=== PATIENT | female | born 2000 | race Caucasian/White ===

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

== ENCOUNTER 2022-05-15 13:55 | Outpatient (CLI) | payer MEDICAID, SELFPAY ==
[2022-05-15 17:23] LABS: Chloride* 109 mmol/L (96-114); Potassium* 3.9 mmol/L (3.6-5.1); Sodium* 141 mmol/L (135-149)
[2022-05-15 17:26] LABS: Blood Urea Nitrogen* 8 mg/dL (5-24); Carbon Dioxide* 25 mmol/L (20-32); Creatinine* 0.6 mg/dL (0.6-1.2); Estimated Glomerular Filt Rate 133 ml/min; Glucose* 88 mg/dL (60-115)
[2022-05-15 17:27] LABS: Calcium* 9.3 mg/dL (8.7-10.8)
== END 2022-05-15 13:56 | disposition home or self-care (01) ==
LOC: LONREF 13:57
PROVIDERS: PCP Family Medicine; Visit Provider Family Medicine
DX: Z01.818 Encounter for other preprocedural examination (principal)
CPT/HCPCS: 80048; 87086

== ENCOUNTER 2022-05-28 08:56 | Outpatient (CLI) | payer MEDICAID, SELFPAY ==
[2022-05-28 14:39] LABS: SARS PCR* Negative SARS-CoV-2 (Negative)
== END 2022-05-28 08:57 | disposition home or self-care (01) ==
LOC: LONREF 08:56
PROVIDERS: PCP Family Medicine; Visit Provider Family Medicine
DX: Z20.822 Contact with and (suspected) exposure to COVID-19 (principal); Z01.818 Encounter for other preprocedural examination
CPT/HCPCS: 87635

== ENCOUNTER 2023-04-30 12:16 | Emergency (ER) | payer MEDICAID, SELFPAY ==
[2023-04-30 13:07] VITALS: BP 143/86; PULSE 92; RESP 16; TEMP 36.8; O2SAT 99; BMI 19.8
--- NOTE | 2023-04-30 13:48 | ED_ITS ---
HPI - Wound/Laceration General Date Seen: 04/30/23 Chief Complaint: Laceration/Wound Stated Complaint: Dog bite L leg two weeks ago, potentially infected Time Seen by Provider: 04/30/23 13:19 Source: patient Mode of arrival: ambulatory Limitations: no limitations History of Present Illness HPI narrative: Patient is a 22-year-old female presenting to the emergency department for dog bite to her left lower leg. This happened 2 weeks ago. She was evaluated at that time was placed on amoxicillin. She specifically states that was amoxicillin she was on not Augmentin. Since then she has also swelling is going down in her leg but there is still erythema seen around the bites and they are tender to palpation. She states that was initially bloody drainage followed by a yellow drainage and now it is mostly bloody drainage again. Denies fevers or chills. No pain noted anywhere else. Related Data Previous Rx's Medication Instructions Recorded trazodone 50 mg tablet 50 mg PO QHS PRN insomnia #30 tabs 03/30/22 norgestimate-ethinyl estradiol 1 tab PO QDAY #84 tabs 12/21/22 0.18 mg/0.215mg/0.25mg-35 mcg(21)tablet methylphenidate HCl 27 mg 27 mg PO QAM #30 tabs 04/02/23 tablet,extended release 24 hr amoxicillin 875 mg-potassium 1 tab PO Q12H #10 tabs 04/30/23 clavulanate 125 mg tablet Allergies Allergy/AdvReac Type Severity Reaction Status Date / Time No Known Drug Allergies Allergy Verified 05/15/22 13:21 Review of Systems Narrative: Pertinent systems reviewed and are negative unless stated in HPI PFSH PFSH Medical History Self-inflicted injury Surgical History Status post thoracic spinal fusion ?Z98.1 - Arthrodesis status (ICD-10) Social History What is your current living situation?: I presently have a place to live In the past 12 months, utilities in danger of being shut off: no In past 12 months, lack of transportation kept you from medical appts, meetings, work, or getting things needed for daily living: no In the past 12 mos, have been you worried that your food would run out before you had money to buy more?: never true In the past 12 mos, the food you bought just didn't last and you didn't have money to buy more?: never true Smoking Status: Never smoker How often does anyone, including family, friends and others, physically hurt you : never How often does anyone, including family, friends and others, insult or talk down to you: rarely How often does anyone, including family, friends and others, threaten you with harm: never How often does anyone, including family, friends and others, scream or curse at you: never Little interest or pleasure in doing things: not at all Feeling down, depressed, or hopeless: several days Exam Narrative: Exam Narrative: Const: Well-nourished, Well-developed, in no distress Eyes: PERRL, no conjunctival injection, and symmetrical lids HENT: Atraumatic external nose and ears. Moist mucous membranes. MSK:Extremities w/o deformity, Normal Active ROM Skin: Warm, Dry. Multiple healing lacerations to left lower extremity consistent was dog attack Neuro: Normal Muscle tone, No focal neurological deficits. Psych: Awake, Alert, & Oriented x3. Appropriate mood and affect. Const: Vital Signs, click to edit/add: Vital Signs - 24 hr 04/30/23 13:07 Temperature 98.3 F Pulse Rate [Pulse Oximeter] 92 Respiratory Rate 16 Blood Pressure [Ri ght Upper Arm] 143/86 H Pulse Oximetry 99 Oxygen Delivery Me thod Room Air Course Vital Signs Vital signs: Initial Vital Signs Temperature 98.3 F 04/30/23 13:07 Temperature Source Temporal Artery Scan 04/30/23 13:07 Pulse Rate 92 04/30/23 13:07 Respiratory Rate 16 04/30/23 13:07 Blood Pressure 143/86 H 04/30/23 13:07 Blood Pressure Mean 105 04/30/23 13:07 Blood Pressure Position Sitting 04/30/23 13:07 Pulse Oximetry 99 04/30/23 13:07 Oxygen Delivery Method Room Air 04/30/23 13:07 Vital Signs Temperature 98.3 F 04/30/23 13:07 Pulse Rate 92 04/30/23 13:07 Respiratory Rate 16 04/30/23 13:07 Blood Pressure 143/86 H 04/30/23 13:07 Pulse Oximetry 99 04/30/23 13:07 Oxygen Delivery Method Room Air 04/30/23 13:07 Temperature 98.3 F 04/30/23 13:07 Pulse Rate 92 04/30/23 13:07 Respiratory Rate 16 04/30/23 13:07 Blood Pressure 143/86 H 04/30/23 13:07 Pulse Oximetry 99 04/30/23 13:07 Oxygen Delivery Method Room Air 04/30/23 13:07 MDM - Wound/Laceration MDM Narrative Medical decision making narrative: Patient is a 22-year-old female presenting for concern for infection of the dog bite. She was on amoxicillin but not Augmentin. She was having some bloody drainage in blending tank tender helper around the areas were the bite occurred. There is no signs of systemic infection. Since she was incorrectly covered initially a will place on Augmentin now. She is agreeable to this plan. Discharge Plan Discharge Clinical Impression: Dog bite Qualifiers: Encounter type: subsequent encounter Qualified Code(s): W54.0XXD - Bitten by dog, subsequent encounter Patient Disposition: Home, Self-Care Condition: Stable Instructions: Animal Bite (ED) Additional Instructions: Take the antibiotics as prescribed. Return to emergency department for new or worsening symptoms Prescriptions: New amoxicillin-pot clavulanate 875-125 mg tablet 1 tab PO Q12H Qty: 10 0RF No Action trazodone 50 mg tablet 50 mg PO QHS PRN (Reason: insomnia) Qty: 30 5RF norgestimate-ethinyl estradiol 0.18/0.215/0.25 mg-35 mcg (21) tablet 1 tab PO QDAY Qty: 84 3RF methylphenidate HCl 27 mg tablet extended release 24hr 27 mg PO QAM Qty: 30 0RF Follow Up/Referrals: Oscar Sánchez MD [Primary Care Provider] - Stand Alone Forms: [employer] Info Instructions
--- OUTSIDE RECORDS SUMMARY | 2023-04-30 13:53 | XMS_ITS | Encounter Summary ---
Author Name Unknown Organization [facility] Address [address] [place] [id number] Care Team Providers Care Serials Librarian Name Role Phone No Primary/Referring, Phy Primary Care Provider Unavailable Reason for Visit * Procedure/Equipment (Routine) - Incomplete Specialty Diagnoses / Procedures Referred By Contac t Referred To Contact Procedures XR Hand Lt 3+ Views Janes Arthur PA-C [address] [place] [address] Referral ID Status Reason Start Date Expiration Date V isits Requested Visits Authorized [id number] Incomplete 04/20/2023 07/19/2024 1 1 Encounter Details Date Type Department Care Team Description 04/20/2023 9:45 PM [facility] Ancillary Procedure [facility] [address] [place] [address] Social History Tobacco Use Types Packs/Day Years Used Date Smoking Tobacco: Never Assessed Humiliation, Afraid, Rape, and Kick questionnair e Answer Date Recorded Fear of Current or Ex-Partner Not on file Emotionally Abused Not on file 04/20/2023 Within the last year, have y ou been kicked, hit, slapped, or otherwise physically hurt by your partner or ex-partner? No 04/20/2023 Within the last year, have y ou been raped or forced to have any kind of sexual activity by your partner or ex-partner? No 04/20/2023 Sex and Gender Information Value Date Recorded Sex Assigned at Not on file Gender Identity Not on file Sexual Orientation Not on file documented as of this encounter Plan of Treatment Not on file documented as of this encounter Procedures Procedure Name Priority Date/Time Associated Diagnosis Comments XR HAND LT 3+ VIEWS STAT 04/20/2023 9 :50 PM [facility] XR TIBIA FIBULA LT 2 VIEWS STAT 04/20/2023 9:50 PM [facility] documented in this encounter Results * XR Hand Lt 3+ Views (04/20/2023 9:50 PM [facility]) Anatomical Region Laterality Modality Upper Extremity, Hand Computed R adiography 04/20/2023 9:50 PM [facility] Narrative 04/20/2023 9:54 PM [facility] EXAM: XR HAND LT 3+ VIEWS LOCATION: [facility] DATE: 04/20/2023 INDICATION: Dog bite, PAIN COMPARISON: None. IMPRESSION: No acute bony finding such as fracture dislocation. There is some faint low density changes seen in the soft tissues of the hand which may represent gas given patient's history of recent dogbite. No unexpected radiopaque foreign body seen. Procedure Note Jeferson Gonzales MD - 04/20/2023 EXAM: XR HAND LT 3+ VIEWS LOCATION: [facility] DATE: 04/20/2023 INDICATION: Dog bite, PAIN COMPARISON: None. IMPRESSION: No acute bony finding such as fracture dislocation. There issome faint low density changes seen in the soft tissues of the hand whichmay represent gas given patient's history of recent dogbite. No unexpectedradiopaque foreign body seen. Janes Arthur PA-C RAD GD * XR Tibia Fibula Lt 2 Views (04/20/2023 9:50 PM [facility]) Anatomical Region Laterality Modality Lower Extremity, Knee, Leg, Foot & Ankle Computed Radiography 04/20/2023 9:50 PM [facility] Narrative 04/20/2023 9:54 PM [facility] EXAM: XR TIBIA FIBULA LT 2 VIEWS LOCATION: [facility] DATE: 04/20/2023 INDICATION: Not by with left lower leg pain. COMPARISON: None. IMPRESSION: Soft tissue gas lateral aspect of mid fibular diaphysis. No radiopaque soft tissue foreign body nor osseous injury. Procedure Note Gil Campuzano MD - 04/20/2023 EXAM: XR TIBIA FIBULA LT 2 VIEWS LOCATION: [facility] DATE: 04/20/2023 INDICATION: Not by with left lower leg pain. COMPARISON: None. IMPRESSION: Soft tissue gas lateral aspect of mid fibular diaphysis. Noradiopaque soft tissue foreign body nor osseous injury. Janes HURTADO documented in this encounter Visit Diagnoses Not on filedocumented in this encounter Care Teams Serials Librarian Relationship Specialty Start Date End Date No Primary/Referring, Phy PCP - General 04/20/23 documented as of this encounter
--- OUTSIDE RECORDS SUMMARY | 2023-04-30 13:53 | XMS_ITS | Clinical Summary ---
Author Name Unknown Organization [facility] Address [place], [place] [address] Care Team Providers Care House Calls Nurse Name Role Phone Oscar Sánchez MD Primary Care Provider [phone] [facility] [place] Unavailable [phone] Allergies No known active allergies Medications Medication Sig Dispensed Refills Start Date End Date Status methylphenidate 18 mg ER tablet ([employer] BR[employer] ONLY) Take 18 mg by mouth once daily. 0 Active norgestimate-ethiny l estradioL (ORTHO TRI-CYCLEN) 0.18/0.215/0.25 mg-35 mcg (28) tablet Take 1 Tablet by mouth once daily. 0 Active HYDROmorphone (DILAUDID) 2 mg tabletIndications:A cute post-operative pain [The details of the medication are not available because there are pending changes by a home health clinician.] 20 Tablet 0 05/31/2022 Active Additional Information Patient not taking.Reason: See Comment (is only taking the oxycodone now), Informant: Patient's Recall, Reported on 06/08/2022 methocarbamoL (ROBAXIN) 750 mg tabletIndications:A cute post-operative pain [The details of the medication are not available because there are pending changes by a home health clinician.] 12 Tablet 0 05/31/2022 Active Additional Information Patient not taking.Informant: Patient's Recall, Reported on 07/06/2022 sennosides-docusate (SENOKOT S) (8.6-50 mg) tabletIndications:A cute post-operative pain [The details of the medication are not available because there are pending changes by a home health clinician.] 8 Tablet 0 05/31/2022 Active Additional Information Patient not taking.Informant: Patient's Recall, Reported on 07/06/2022 Active Problems Problem Noted Date Diagnosed Date Mixed anxiety depressive disorder 05/30/2022 Insomnia 05/30/2022 Attention deficit disorder (ADD) 05/30/2022 Scoliosis 05/30/2022 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 Immunizations Name Administration Dates Next Due DTP 04/19/2004, 4,04/20/2003,01/12 [id number] (Pediarix) 07/07/2003,04/20/2003,1 DTaP-IPV (Kinrix) 11/18/2007 Dtap-5 Pertussis Antigens 04/19/2004 HIB HbOC (HibTITER) 04/19/2004,04/20/2003,2002 HIB PRP-OMP (PedvaxHIB) 04/19/2004,04/20/2003 HIB PRP-T (ActHIB,Hiberix) 01/12/2003 HPV 9 (Gardasil 9) 07/14/2019,04/13/2019, 018 Hep A, Ped/adol, 3 Dose 03/20/2013 Hepatitis A (Peds) 11/18/2007 Hepatitis B (Peds) 07/07/2003,04/20/2003, 003 Inactivated Polio Vaccine 07/07/2003,04/20/2003, 01/12/2003 Influenza, IIV3 (Age 6-35 mos) 4,12/11/2010,03/20/2010,05/02 Influenza, IIV3 (Age >=3 years) 04/20/2008 Influenza,LAIV4 Live Intrana reina (Flumist) 12/31/2014 MMR 03/20/2013,11/17/2003 Meningococcal Vaccine (Menveo) 05/08/2017 Pneumococcal conj 7-Valent (Prevnar 7) 0 04/19/2004,07/07/2003,04/20/2003,01/12 Tdap 05/08/2017 Varicella Vaccine 11/18/2007,11/17/2003 Social History Tobacco Use Types Packs/Day Years Used Date Smoking Tobacco: Never Smokeless Tobacco: Never Tobacco Cessation:Counseling Given: Not Answered Alcohol Use Standard Drinks/Week Comments Yes 0 (1 standard drink = 0.6 oz pur e alcohol) very rare Social Connections Answer Date Recorded Frequency of Communication with Friends and Fami ly Not on file 06/25/2022 Sex and Gender Information Value Date Recorded Sex Assigned at Not on file Gender Identity Not on file Sexual Orientation Not on file Obstetrics History Last Filed Vital Signs Vital Sign Reading Time Taken Comments Blood Pressure 120/70 07/06/2022 3:43 PM CDT Pulse 96 07/06/2022 3:43 PM CDT Temperature 36.3 ??C (97.3 ??F) 07/06/2022 3:43 PM CD T Respiratory Rate 14 07/06/2022 3:43 PM CDT Oxygen Saturation 97% 07/06/2022 3:43 PM CDT Inhaled Oxygen Concentration - - Weight 63.5 kg (140 lb) 05/31/2022 6:00 AM CDT Height 165.1 cm (5' 5) 05/31/2022 6:00 AM CDT Body Mass Index 23.3 05/31/2022 6:00 AM CDT Plan of Treatment Health Maintenance Due Date Last Done Comments COVID-19 vaccine series (#1) 05/05/2003 Well Child Check for age 3-20 10/02/2005 Depression screening for age 12+ 2014 HIV for age 15-65 2017 BMI (ht and wt on same day) for age 18+ 2020 Hepatitis C screening for age 18-79 2020 Influenza for age 9-49 11/16/2022 12/31/2014, 2008 Tetanus booster 05/08/2027 05/08/2017 Pneumococcal series for age 6-64 Aged Out 04/19/2004, 07/07/2003, 04/20/2003, Additional history exists No longer eligible based on patient's age to complete this topic Meningococcal series for age 11-21 Aged Out 05/08/2017 No longer eligible based on patient's age to complete this topic Tdap Completed 05/08/2017 HPV series for age 9-26 Completed 07/14/19, 04/13/2019, 05/08/2017 Medical Devices Implanted Type Area Nc Machinist Device Identifier Shelf Expiration Date Model / Serial / Lot [id number] one 1-4mm 90cc Medtronic Chips Canclls Freeze Dried Implanted:Qty: 1 on 05/29/2022 by Alejandro Echevarria MD at [facility] N/A: Spine Medtronic Spine/Ortho 03/31/2026 [id number] / [id number] / Kena 5.5 [place] Chrome Lined 520mm Implanted:Qty: 2 on 05/29/2022 by Alejandro Echevarria MD at [facility] N/A: Spine [id number] / / Description:KENA 5.5 [place] C HROME LINED 520MM Screw Set 5.5/6.0 Implanted:Qty: 17 on 05/29/2022 by Alejandro Echevarria MD at [facility] N/A: Spine [id number] / / Description:SCREW SET 5.5/6. 0 Screw Voyager 5.5 X 30 Implanted:Qty: 2 on 05/29/2022 by Alejandro Echevarria MD at [facility] N/A: Spine [id number] / / Description:SCREW VOYAGER 5. 5 X 30 Screw Voyager 5.5 X 35 Implanted:Qty: 3 on 05/29/2022 by Alejandro Echevarria MD at [facility] N/A: Spine [id number] / / Description:SCREW VOYAGER 5. 5 X 35 Screw Voyager 5.5 X 40 Implanted:Qty: 8 on 05/29/2022 by Alejandro Echevarria MD at [facility] N/A: Spine [id number] / / Description:SCREW VOYAGER 5. 5 X 40 Screw Voyager 6.5 X 40 Implanted:Qty: 2 on 05/29/2022 by Alejandro Echevarria MD at [facility] N/A: Spine [id number] / / Description:SCREW VOYAGER 6. 5 X 40 Screw Voyager 6.5 X 45 Implanted:Qty: 2 on 05/29/2022 by Alejandro Echevarria MD at [facility] N/A: Spine [id number] / / Description:SCREW VOYAGER 6. 5 X 45 Advance Directives Latest Code Status on File Code Status Date Activated Date Inactivated Comments Full Code 05/29/2022 4:51 PM 06/01/2022 3:51 PM Question Answer Comments Code Status Discussion: Reviewed Preferences Care Teams House Calls Nurse Relationship Specialty Start Date End Date Oscar Sánchez MD PCP - General Family Practice 05/09/[address] [address] 06/01/22
--- OUTSIDE RECORDS SUMMARY | 2023-04-30 13:53 | XMS_ITS | Encounter Summary ---
Author Name Unknown Organization [facility] Address [address] [place] [address] Care Team Providers Care Lead Systems Analyst Name Role Phone No Primary/Referring, Phy Primary Care Provider Unavailable Reason for Referral * Procedure/Equipment (Routine) - Incomplete Specialty Diagnoses / Procedures Referred By Contac t Referred To Contact Procedures XR Hand Lt 3+ Views Janes Arthur PA-C [address] [place] [phone] Referral ID Status Reason Start Date Expiration Date V isits Requested Visits Authorized [id number] Incomplete 04/20/2023 07/19/2024 1 1 E CONSERVATIONIST * Procedure/Equipment (Routine) - Incomplete Specialty Diagnoses / Procedures Referred By Contac t Referred To Contact Procedures XR Tibia Fibula Lt 2 Views Janes Arthur PA-C [address] [place] [id number] Referral ID Status Reason Start Date Expiration Date V isits Requested Visits Authorized [id number] Incomplete 04/20/2023 07/19/2024 1 1 E CONSERVATIONIST Reason for Visit * Reason Comments Animal Bite Dog bite to left hatch d and lower left leg above the ankle. Bleeding controlled and wounds dressed with 4x4's and secured with Kurlex. Dog is vaccinated and they know the dog. Encounter Details Date Type Department Care Team Description 04/20/2023 8:38 PM RANGE CONSERVATIONIST - 04/20/2023 11:40 PM RANGE CONSERVATIONIST [facility] [address] [place] [address] [phone] Janes Arthur PA-C [address] [place] [address] [phone] Dog bite, initial encounter (Primary Dx); Open wound of left hand due to animal bite; Open wound of left lower leg due to bite; Encounter for administration of vaccine Discharge Disposition: Home Social History Tobacco Use Types Packs/Day Years [...] on file documented as of this encounter Last Filed Vital Signs Vital Sign Reading Time Taken Comments Blood Pressure 128/95 04/20/2023 7:43 PM RANGE CONSERVATIONIST Pulse 66 04/20/2023 7:43 PM RANGE CONSERVATIONIST Temperature 36.9 ??C (98.4 ??F) 04/20/2023 7:43 PM CS T Respiratory Rate 20 04/20/2023 7:43 PM RANGE CONSERVATIONIST Oxygen Saturation 97% 04/20/2023 7:43 PM RANGE CONSERVATIONIST Inhaled Oxygen Concentration - - Weight - - Height - - Body Mass Index - - documented in this encounter Discharge Instructions * Discharge Instructions* Janes Arthur PA-C - 04/20/2023 10:19 PM RANGE CONSERVATIONIST Follow-up with primary care provider on Saturday or for recheck. Tylenol or ibuprofen for pain per bottle labeled direction. Take antibiotic until gone. E CONSERVATIONIST * Attachments The following attachments cannot be sent through Care Everywhere. * Bites: Animal (Palauan) documented in this encounter Medications at Time of Discharge Medication Sig Dispensed Refills Start Date End Date ibuprofen (MOTRIN) 600 MG tablet Take 1 Tablet (600 mg) by mouth every 6 hours as needed for Pain. 30 Tablet 0 04/20/2023 amoxicillin-clavulanate (AUGMENTIN) 875-125 mg per tablet Take 1 Tablet (875 mg of amoxicillin) by mouth two times a day for 7 days. 14 Tablet 0 04/20/2023 04/27/2023 documented as of this encounter ED Notes * Mo García - 04/20/2023 11:39 PM CST [facility] ED Nursing Discharge Note Arrival Information: Patient arrived: Car Patient escorted by: Friend Discharge Information: Patient discharged: Home Patient accompanied by: Accompanied By: Friend Transport mode: Mode: Car Discharge instructions given and explained to patient: Follow up appointment review with patient: Yes New discharge prescriptions explained to patient: Yes: Medications Prescribed this Visit Disp Refills Start End amoxicillin-clavulanate (AUGMENTIN) 875-125 mg per tablet 14 Tablet 0 04/20/2023 04/27/2023 Take 1 Tablet (875 mg of amoxicillin) by mouth two times a day for 7 days. Oral ibuprofen (MOTRIN) 600 MG tablet 30 Tablet 0 04/20/2023 Take 1 Tablet (600 mg) by mouth every 6 hours as needed for Pain. Oral Patient appropriately dressed for weather: Yes LDA in place: Patient verbalized understanding of discharge plan and capable of completing discharge plan: Yes Does patient require hand-off or assistance with discharge plan: No Belongings and medication returned to patient and prompted to retrieve weapons: Yes Patient level of pain on discharge: (0-10) Pain Rating: Rest: 3 Holds documented by nursing during this visit - reviewed chart for most current hold status: Yes Legal Status Orders (From admission, onward) None E CONSERVATIONIST * Shu Gamez - 04/20/2023 10:39 PM CST Patient complained of numbness on inner left thumb. PA notified. E CONSERVATIONIST * Janes Arthur PA-C - 04/20/2023 10:12 PM CST Images from the original note were not included. [facility] Emergency Medicine Visit Note Chief Complaint: Animal Bite (Dog bite to left hand and lower left leg above the ankle. Bleeding controlled and wounds dressed with 4x4's and secured with Kurlex. Dog is vaccinated and they know the dog. ) HPI 22 y.o. who has no significant past medical history here with puncture bo to the left hand and left lower leg. Patient was bitten by her friend's dog. Patient can not recall her last tetanus and agrees to updating. Patient's friend is at bedside and stated that her dog is up to date on vaccination.. No other complaints at this time. Triage Vitals [04/20/23 194] Temp 98.4 ??F (36.9 ??C) Temp src Oral Pulse 66 Resp 20 BP (!) 128/95 SpO2 97 % Physical Exam General: alert, oriented to person, place, time and normal hydration Head: atraumatic Eyes: conjunctivae clear Nose: no rhinorrhea/nasal discharge Mouth/Throat: moist mucous membrane Neck: supple Chest/Pulmonary: Nonlabored respiration. Musculoskel/Extremities: Radial pulse +2 on the left hand, pedal pulse +2 on the left foot. Hand: full range of motion Skin: no rashes, no diaphoresis, and skin color normal Neuro: speech clear and gait stable Psychiatric: affect/mood normal, cooperative, normal judgement/insight, and memory intact MDM: Patient is a 22-year-old female who presented to the ER with dog bites to the left hand and left lower leg. Patient is right-handed dominant. Vitals reviewed, blood pressure 128/95. With historyand exam as above. Imaging ordered, Tetanus is updated. Patient declined Tylenol or ibuprofen for pain. Janes Arthur PA-C ED Course as of 04/20/232305 Sat Apr 20, [id number] X-ray negative and results reviewed with patient and her friend [MT] 2216 Wound care with irrigation and dressing by nursing staff. [MT] 2235 Patient complained of numbness to the left thumb and index finger, patient able to perform finger opposition. Capillary refills brisk. [MT] ED Course User Index [MT] Janes Arthur PA-C Clinical Impressions as of 04/20/232305 Dog bite, initial encounter - left hand and left lower leg E CONSERVATIONIST documented in this encounter Plan of Treatment Not on file documented as of this encounter Procedures Procedure Name Priority Date/Time Associated Diagnosis Comments XR TIBIA FIBULA LT 2 VIEWS STAT 04/20/2023 9:50 PM RANGE CONSERVATIONIST XR HAND LT 3+ VIEWS STAT 04/20/2023 9 :50 PM RANGE CONSERVATIONIST documented in this encounter Results * XR Hand Lt 3+ Views (04/20/2023 9:50 PM RANGE CONSERVATIONIST) Anatomical Region Laterality Modality Upper Extremity, Hand Computed R adiography 04/20/2023 9:50 PM RANGE CONSERVATIONIST Narrative 04/20/2023 9:54 PM RANGE CONSERVATIONIST EXAM: XR HAND LT 3+ VIEWS LOCATION: [...] EXAM: XR HAND LT 3+ VIEWS LOCATION: [facility] DATE: 04/20/2023 INDICATION: Dog bite, PAIN COMPARISON: None. IMPRESSION: No acute bony finding such as fracture dislocation. There issome faint low density changes seen in the soft tissues of the hand whichmay represent gas given patient's history of recent dogbite. No unexpectedradiopaque foreign body seen. Janes Arthur PA-C RAD GD * XR Tibia Fibula Lt 2 Views (04/20/2023 9:50 PM RANGE CONSERVATIONIST) Anatomical Region Laterality Modality Lower Extremity, Knee, Leg, Foot & Ankle Computed Radiography 04/20/2023 9:50 PM RANGE CONSERVATIONIST Narrative 04/20/2023 9:54 PM RANGE CONSERVATIONIST EXAM: XR TIBIA FIBULA LT 2 VIEWS LOCATION: [facility] DATE: 04/20/2023 INDICATION: Not by with left lower leg pain. COMPARISON: None. IMPRESSION: Soft tissue gas lateral aspect of mid fibular diaphysis. No radiopaque soft tissue foreign body nor osseous injury. Procedure Note Gil Campuzano MD - 04/20/2023 EXAM: XR TIBIA FIBULA LT 2 VIEWS LOCATION: [facility] DATE: 04/20/2023 INDICATION: Not by with left lower leg pain. COMPARISON: None. IMPRESSION: Soft tissue gas lateral aspect of mid fibular diaphysis. Noradiopaque soft tissue foreign body nor osseous injury. Janes Arthur STEPHANIE RAD GD documented in this encounter Visit Diagnoses Diagnosis Dog bite, initial encounter- Primary Open wound of left hand due to animal bite Open wound of left lower leg due to bite Encounter for administration of vaccine * Triage Assessment Note - Kalie Talavera RN - 04/20/2023 7:36 PM RANGE CONSERVATIONIST Chief complaint: Dog bite Symptoms/background/relevant history (narrative): Pt presents after being bit multiple times by dogtonight, multiple <1cm punctures noted to L hand and L muse, one approx 3cm lac noted to medial L muse. Bleeding controlled, bandage applied in triage. Pt states dog is vaccinated. What is most important to you about your ER visit today? Get checked out Initial falls risk factors: Not applicable E CONSERVATIONIST documented in this encounter Administered Medications Inactive Administered Medications - up to 3 most recent administrations Medication Order MAR Action Action Date Dose Rate Site ibuprofen (MOTRIN) tablet 400 mg 400 mg, Oral, NOW, On 04/20/23 at 2014, For 1 dose, Give with food or milk. Given 04/20/2023 7:59 PM RANGE CONSERVATIONIST 400 mg documented in this encounter Active and Recently Administered Medications Times are shown in RANGE CONSERVATIONIST. Scheduled Medication Order 04/18/2023 04/19/2023 04/20/2023 ibuprofen (MOTRIN) tablet 400 mg (COMPLETED) 400 mg, Oral, NOW, On 04/20/23 at 2014, For 1 dose, Give with food or milk. 1956 (Given - Provid er: Kalie Talavera RN) documented in this encounter Care Teams Lead Systems Analyst Relationship Specialty Start Date End Date No Primary/Referring, Phy PCP - General 04/20/23 documented as of this encounter
--- OUTSIDE RECORDS SUMMARY | 2023-04-30 13:53 | XMS_ITS | Continuity of Care Document ---
Author Name Unknown Organization [facility] Address [address] [place] [address] Phone Care Team Providers Care Dermatology Teacher Name Role Phone Alejandro Echevarria MD Unavailable Unavailable Allergies, Adverse Reactions, Alerts Substance Reaction Status Criticality No Known Allergies Active No Inform ation Medications Medication Instructions Dosage Effective Dates (start - stop) Status Comments oxycodone 5 mg tablet take 1 - 2 tablet by ORAL route every 4 - 6 hours as needed for pain 5 MG - Active COTEMPLA XR-ODT (unknown strength) Not Available - Active Procedures Procedure Date Postop Followup Visit X Ray Exam Entire Spine 2/3 23 PSF for Spinal Deformity, 7-12 Segments - PA Latoya / Campo-Palacios Osteotomy, Thorac ic - PA Latoya / Campo-Palacios Osteotomy - Addit ional Level(s) - PA Posterior Instrumentation, 7-12 Segments - PA PSF for Spinal Deformity, 7-12 Segments Latoya / Campo-Palacios Osteotomy, Thorac ic Latoya / Capmo-Palacios Osteotomy - Addit ional Level(s) Posterior Instrumentation, 7-12 Segments Office/Outpatient Visit,[facility], Mod 2021 X Ray Exam Entire Spine 2/3 Office/Outpatient Visit,[facility] 2021 Advance Directives Directive Yes / No Effective Date File Name No Information Encounters Encounter Description Practice Location Reason(s) For Visit Diagnoses Date Provider Providers Copied on Encounter [facility], [address], [place], [place], [id number], [place] tel:[phone] [facility] No Information 3 Swathi Allen. [facility], [address], [address], [facility] [place], [id number] , [place]. tel: [phone] [facility], [address], [place], [place], [id number], [place] tel:[phone] [facility] Adolescent idiopathic scoliosis, thoracolumbar region 3 Martín Aguero. [facility], [address] [place] [address] [address], [facility], [place], [id number] , [place]. tel: [phone] Referring Provider: Tony Garrison, [facility] [address] [place], [address]. tel:[phone] [facility], [address], [place], [place], [id number], [place] tel:[phone] [facility] No Information 3 Swathi Allen. [facility], [address], [address], [facility] [place], [id number] , [place]. tel: [phone] [facility], [address], [place], [place], [id number], [place] tel:[phone] [facility] No Information 3 Martín Aguero. [facility], [address] [place] [address] [address], [facility] [place], [id number] , [place]. [phone] Referring Provider: Tony Garrison, [facility] [address], [place], [address]. tel:[phone] [facility], [address], [place], [place], [id number], [place] tel:[phone] [facility] No Information 3 Swathi Allen. [facility], [address], [address], [place], [place], [id number] , [place]. [phone] Referring Provider: Tony Garrison, [facility] [address], [place], [address]. tel:[phone] Office/Outpat ient Visit,Est, Mod [facility], [address], [place], [place], [id number], [place] tel:[phone] [facility] Adolescent idiopathic scoliosis, thoracolumbar region 2 Swathi Allen. [facility], [address], [address], [facility] [place], [id number] , [place]. [phone] Referring Provider: Tony Garrison, [facility] [address], [place], [address]. tel:[phone] Office/Outpat ient Visit,New, Mod [facility], [address], [place], [place], [id number], [place] tel:[phone] [facility] Adolescent idiopathic scoliosis, thoracolumbar region 2 Samuelyuli Vazquez. [facility], [address], [facility] [place], [address], [place]. [phone] Referring Provider: Tony Garrison, [facility] [address], [place], [address]. tel:[phone] [facility], [address], [place], [place], [id number], [place] tel:[phone] [facility] Other idiopathic scoliosis, lumbar region 2 Samuel Taylor. [facility], [address], [place], [address], [place]. [phone] Family History Family Member Type Diagnosis Age At Onset No Information Payers Payer name Insurance type Covered constitution party ID Amparo ac(s) Joanne Obregon 2021 CI [id number] Social History Type Description Quantity Date Captured Comments Sex Female Smoking Status No Information Chief Complaint And Reason For Visit No Information Reason For Referral Reason For Referral No Information Plan Of Treatment Date Type Action Status Future Order: Radiology Order Tr action (Traction), Ordered on: Ordered Future Order: Radiology Order Si debending Cervical Thoracic Or Lumbar (SidebendingCTL), Ordered on: Ordered History Of Present Illness Encounter Date Complaint History Of Prese nt Illness No Information Functional Status Date Functional Assessmen t No Information Instructions Date Instruction Additional Infor mation No Information Assessments Type Assessment Date No Information Patient Care Teams Name Effective Dates (start - stop) Status Members No Information
--- OUTSIDE RECORDS SUMMARY | 2023-04-30 13:53 | XMS_ITS | Clinical Summary ---
Author Name Unknown Organization [facility] Address [address] [place] [address] Care Team Providers Care Blue Prints Trimmer Name Role Phone No Primary/Referring, Phy Primary Care Provider Unavailable Source Comments You are receiving this document as you are listed as the primary care provider,follow-up provider, or the patient has been referred to you for consultation.This is in compliance with the Medicare and[facility] Hospital[facility] EHR Incentive Program,which states Providers who transition their patient to another setting of careor provider of care or refers their patient to another provider of care shouldprovide summary care record for each transition of care or referral. [facility] Allergies No known active allergies Medications Medication Sig Dispensed Refills Start Date End Date Status ibuprofen (MOTRIN) 600 MG tablet Take 1 Tablet (600 mg) by mouth every 6 hours as needed for Pain. 30 Tablet 0 04/20/2023 Active amoxicillin-clavulan ate (AUGMENTIN) 875-125 mg per tablet Take 1 Tablet (875 mg of amoxicillin) by mouth two times a day for 7 days. 14 Tablet 0 04/20/2023 04/27/2023 Encounters Date Type Department Care Team Description 04/20/2023 9:45 PM SHEET ROCK TAPER Ancillary Procedure [facility] [address] [place] [address] 04/20/2023 8:38 PM SHEET ROCK TAPER - 04/20/2023 11:40 PM SHEET ROCK TAPER Emergency [facility] [address] [place] [address] Janes Arthur PA-C Dog bite, initial encounter (Primary Dx); Open wound of left hand due to animal bite; Open wound of left lower leg due to bite; Encounter for administration of vaccine Discharge Disposition: Home from Last 3 Months Immunizations Name Administration Dates Next Due Tdap 04/20/2023 Social History Tobacco Use Types Packs/Day Years [...] on file Sexual Orientation Not on file Last Filed Vital Signs Vital Sign Reading Time Taken Comments Blood Pressure 128/95 04/20/2023 7:43 PM SHEET ROCK TAPER Pulse 66 04/20/2023 7:43 PM SHEET ROCK TAPER Temperature 36.9 ??C (98.4 ??F) 04/20/2023 7:43 PM CS T Respiratory Rate 20 04/20/2023 7:43 PM SHEET ROCK TAPER Oxygen Saturation 97% 04/20/2023 7:43 PM SHEET ROCK TAPER Inhaled Oxygen Concentration - - Weight - - Height - - Body Mass Index - - Plan of Treatment Health Maintenance Due Date Last Done Comments Chlamydia 2002 Hep C Screening (Preventive Services) 2002 HepB (1) 2002 COVID-19 Vaccine (#1) 05/05/2003 HepA (2 of 2 - 2-dose series) 05/17/2008 11/18/2007 HIV Screening (Preventive Services) 2018 Adult Preventive Visit 2020 Influenza (#1) 2022 12/31/2014, 05/2013, 12/11/2010, Additional history exists DTaP/Tdap/Td (8 - Tdap) 04/20/2033 04/20/19 24, 05/08/2017, 11/18/2007, Additional history exists Zoster/Shingles (1 of 2) 2052 Hib Completed 04/19/2004, 04/2004, 04/20/2003, Additional history exists Pneumococcal Aged Out 04/19/2004, 06/17, 04/20/2003, Additional history exists No longer eligible based on patient's age to complete this topic IPV (Polio) Completed 11/18/2007, 06/17, 07/07/2003, Additional history exists MCV4 Aged Out 05/08/2017 No longer eligi ble based on patient's age to complete this topic HPV Vaccine Completed 07/14/2019, 03/19, 05/08/2017 Procedures Procedure Name Priority Date/Time Associated Diagnosis Comments XR HAND LT 3+ VIEWS STAT 04/20/2023 9 :50 PM SHEET ROCK TAPER XR TIBIA FIBULA LT 2 VIEWS STAT 04/20/2023 9:50 PM SHEET ROCK TAPER from Last 3 Months Results * XR Tibia Fibula Lt 2 Views (04/20/2023 9:50 PM SHEET ROCK TAPER) Anatomical Region Laterality Modality Lower Extremity, Knee, Leg, Foot & Ankle Computed Radiography 04/20/2023 9:50 PM SHEET ROCK TAPER Narrative 04/20/2023 9:54 PM SHEET ROCK TAPER EXAM: XR TIBIA FIBULA LT 2 VIEWS [...] foreign body nor osseous injury. Janes Arthur PA-C RAD GD * XR Hand Lt 3+ Views (04/20/2023 9:50 PM SHEET ROCK TAPER) Anatomical Region Laterality Modality Upper Extremity, Hand Computed R adiography 04/20/2023 9:50 PM SHEET ROCK TAPER Narrative 04/20/2023 9:54 PM SHEET ROCK TAPER EXAM: XR HAND LT 3+ VIEWS LOCATION: [...] EXAM: XR HAND LT 3+ VIEWS LOCATION: [facility] DATE: 04/20/2023 INDICATION: Dog bite, PAIN COMPARISON: None. IMPRESSION: No acute bony finding such as fracture dislocation. There issome faint low density changes seen in the soft tissues of the hand whichmay represent gas given patient's history of recent dogbite. No unexpectedradiopaque foreign body seen. Janes HURTADO from Last 3 Months Care Teams Blue Prints Trimmer Relationship Specialty Start Date End Date No Primary/Referring, Phy PCP - General 04/20/23
== END 2023-04-30 14:03 | disposition home or self-care (01) ==
PROVIDERS: Emergency Provider Student in an Organized Health Care Education/Training Program; PCP Family Medicine
DX: S81.852A Open bite, left lower leg, initial encounter (principal); W54.0XXA Bitten by dog, initial encounter
CPT/HCPCS: 99282; 99283

== ENCOUNTER 2024-04-28 08:40 | Outpatient (CLI) | payer MEDICAID, SELFPAY ==
[2024-04-28 13:01] LABS: Bacterial Vaginosis* Negative (Negative); Candida glab/krus NOT DETECTED (No Detected); Candida species NOT DETECTED (No Detected); Trichomonas vaginalis NOT DETECTED (No Detected)
[2024-04-28 13:31] LABS: Chlamydia DNA Amplified* NOT DETECTED (No Detected); GC DNA Amplified* NOT DETECTED (No Detected)
== END 2024-04-28 08:41 | disposition home or self-care (01) ==
PROVIDERS: PCP Family Medicine; Visit Provider Physician Assistant
DX: N89.8 Other specified noninflammatory disorders of vagina (principal); Z12.4 Encounter for screening for malignant neoplasm of cervix
CPT/HCPCS: 81513; 87481; 87491; 87591; 87624; 87625; 87661; 88141; 88142